=== PATIENT | male | born 1985 | race Caucasian/White ===

== ENCOUNTER 2017-05-13 07:52 | Emergency (ER) | payer BC ==
--- NOTE | 2017-05-13 08:21 | EDM.PDOC ---
ED HPI GENERAL MEDICAL PROBLEM - General Chief Complaint: ENT Problem Stated Complaint: SORE THROAT Time Seen by Provider: 05/13/17 08:09 Source of Information: Reports: Patient History Limitations: Reports: No Limitations - History of Present Illness INITIAL COMMENTS - FREE TEXT/NARRATIVE: HISTORY AND PHYSICAL: History of present illness: [31-year-old male with no significant past medical history now complaining of mild sore throat. He is concerned because a coworker had strep saline to make sure he was not evolving strep. Denies fevers chills sweats or shaking chills. No headache or stiff neck. No cough or chest pain. Patient otherwise feels well. Minimal discomfort with swallowing is his only symptom Review of systems: As per history of present illness and below otherwise all systems reviewed and negative. Past medical history: As per history of present illness and as reviewed below otherwise noncontributory. Surgical history: As per history of present illness and as reviewed below otherwise noncontributory. Social history: No reported history of drug or alcohol abuse. Family history: As per history of present illness and as reviewed below otherwise noncontributory. HEENT: Normocephalic, atraumatic, pupils normal and symmetrical, supple neck, no meningismus, normal color, normal appearing oropharynx with no erythema or exudates mass swelling or asymmetry, neck supple, nontender, trachea midline Lungs: Normal and symmetrical chest wall excursion bilateral with no tachypnea or increased work of breathing, grossly normal chest exam clear lungs regular rate and rhythm no tachycardia Heart: No tachycardia in triage Abdomen: Normal-appearing, nondistended, no visible mass or asymmetry Pelvis: Normal-appearing Genitourinary: Deferred Rectal exam: Deferred Extremities: Atraumatic, normal use and range of motion, no visible evidence of gross neurovascular compromise Neuro: Awake, alert, oriented. Normal and appropriate mental status. Cranial nerves grossly unremarkable. Motor function normal. Nonfocal neurologic exam. Diagnostics: [Rapid strep] Therapeutics: [] Impression: Viral Pharyngitis] Plan: [Signs and symptoms consistent with mild pharyngitis but otherwise well- appearing patient with a negative exam. Normal-appearing oropharynx. He has had a strep sick contact. Will check rapid strep to rule out possibility of early strep without yet having manifested characteristic oropharyngeal findings. If negative patient agrees with outpatient follow-up. No further workup or treatment will be indicated and strict return precautions will be given.] Definitive disposition and diagnosis as appropriate pending reevaluation and review of above. throat Pain Score (Numeric/FACES): 3 - Related Data Allergies Allergy/AdvReac Type Severity Reaction Status Date / Time No Known Allergies Allergy Verified 05/13/17 08:05 Home Meds: Home Meds . [No Known Home Meds] 05/13/17 [History] Past Medical History - Past Health History Medical/Surgical History: Denies Medical/Surgical History - Past Surgical History GI Surgical History: Reports: Appendectomy, Hernia, Inguinal Social & Family History - Family History Family Medical History: Noncontributory - Tobacco Use Smoking Status *Q: Never Smoker - Recreational Drug Use Recreational Drug Use: No ED ROS GENERAL - Review of Systems Review Of Systems: See Below (History of present illness) ED EXAM, GENERAL - Physical Exam Exam: See Below (History of present illness) Course - Vital Signs Last Recorded V/S: Last Vital Signs Temp 36.4 C 05/13/17 08:06 Pulse 60 05/13/17 08:06 Resp 16 05/13/17 08:06 BP 134/82 05/13/17 08:06 Pulse Ox 95 05/13/17 08:06 - Orders/Labs/Meds Orders: Active Orders 24 hr Category Date Time Status CULTURE STREP A CONFIRMATION [RM] Stat Lab 05/13/17 08:10 Results STREP SCRN A RAPID W CULT CONF [RM] Stat Lab 05/13/17 08:10 Results Departure - Departure Time of Disposition: 08:55 Disposition: Home, Self-Care 01 Condition: Good Clinical Impression: Viral pharyngitis - Discharge Information Instructions: Pharyngitis, [id number] Referrals: PCP,None [Primary Care Provider] - Forms: ED Department Discharge Additional Instructions: Your rapid strep test was negative today. It appears that your mild sore throat as a result of a viral infection. This is called viral pharyngitis. Rest and drink plenty of fluids take ibuprofen and Tylenol as needed for pain. Follow-up with your in one to 2 days and return immediately for new severe or worsening symptoms - My Orders Last 24 Hours: My Active Orders 05/13/17 08:10 CULTURE STREP A CONFIRMATION [RM] Stat STREP SCRN A RAPID W CULT CONF [] Stat - Assessment/Plan Last 24 Hours: My Active Orders 05/13/17 08:10 CULTURE STREP A CONFIRMATION [RM] Stat STREP SCRN A RAPID W CULT CONF [RM] Stat
[2017-05-13 09:03] VITALS: BP 142/85
== END 2017-05-13 08:57 | disposition home or self-care (01) ==
LOC: MW.ED 07:52
DX: J02.8 Acute pharyngitis due to other specified organisms (principal); B97.89 Other viral agents as the cause of diseases classified elsewhere; Z90.49 Acquired absence of other specified parts of digestive tract
CPT/HCPCS: 87081; 87880; 99282; 99283